=== PATIENT | male | born 1955 | race Caucasian/White ===

== ENCOUNTER 2021-06-15 08:44 | Emergency (ER) | payer MEDICARE, OTHER, SELFPAY ==
[2021-06-15] VITALS (12 sets, daily range): BP systolic 135–185; BP diastolic 89–110; PULSE 70–83; RESP 15–24; TEMP 36.2; O2SAT 97–99; BMI 22.2
--- NOTE | 2021-06-15 09:07 | ED_ITS ---
HPI - Head Injury General Chief complaint: Syncope Stated complaint: Fell- head hit glass door/lac Time Seen by Provider: 06/15/21 09:07 Source: patient Mode of arrival: Ambulatory Limitations: no limitations History of Present Illness HPI Narrative: This is a 66-year-old male who states he had a fall last night and hit his head on the edge of a glass door and had a laceration. This occurred about 2 or 230 in the morning. They live on [facility] in contacted their local medics who evaluated the patient in EKG and recommended that they transfer for here in the morning as there is no transfer other than air left off the middle of the night. Patient states he was having cramping in his legs throughout the evening which is not atypical. He had taken a muscle relaxer about 8:00 p.m.. He tried some mustard which has been helpful for him in the past and 2 aspirin 81 mg. He thinks that he started having very bad cramping while in the bathroom and that caused him to fall but he is not exactly sure what happened and states that he does not recall actually hitting his head and the next thing he remembers other than having his legs cramp in the bathroom is his partner coming in to check on him. Patient denies headache. He denies any neck or new back pain. No chest pain or shortness of breath. No nausea or vomiting. He did have a small amount of fecal incontinence when this occurred. No loss of urine control. He has not had any additional episodes. He does have some discomfort in his right buttock and some bruising. He denies any numbness, weakness or tingling. He has been walking and ambulating and talking without issue. He does take lisinopril, atorvastatin and a daily HIV medication. He does not take aspirin daily but did take 2 last night. He does not have any known cardiac history. He does have heart murmur on exam but he states he has never been told he has 1 in the past. No tobacco, occasional alcohol he states he may have had 1 drink last night, no illicit. He states his tetanus is up-to-date. Related Data Home Medications Medication Instructions Recorded Confirmed aspirin 81 mg chewable tablet 81 mg PO QDAY #0 10/30/17 efavirenz 600 mg-emtricitabine 200 1 tab PO HS #0 10/30/17 mg-tenofovir disoprox 300 mg tablet (Atripla) lisinopril 10 mg tablet PO QDAY #0 10/30/17 omeprazole 20 mg tablet,delayed 20 mg PO QDAY #0 10/30/17 release Allergies Allergy/AdvReac Type Severity Reaction Status Date / Time Penicillins [PENICILLINS] Allergy Unknown 2YRS OLD, Unverified 11/27/17 12:50 UNKNOWN RXN Review of Systems Review of Systems ROS Unobtainable: All systems reviewed & are unremarkable except as noted in HPI and below Patient History Social History Smoking Status: Former smoker Exam Narrative Exam Narrative: GEN: Patient appears in mild distress. HEAD: Patient has a 4 cm laceration on his posterior scalp in the center about 2 cm as gapped about a 0.5 cm with subcutaneous tissue exposed. No galea noted. There is no active bleeding., no raccoon/Alcaraz sign. NECK: Nontender, painless range of motion, trachea midline Negative Nexus criteria, there is no midline tenderness, distracting injury, altered mental status, neuro deficit, recent EtOH. EYES: PERRLA, EOMI ENT: External inspection normal, trachea is midline, TM's are normal no hemotypanum, Nares are clear, no septal hematoma, no dental or oral injury, airway is normal and with normal occlusion, No bony tenderness RESP: Chest is nontender and has symmetric movement, no ecchymosis, breath sounds are normal no crackles, wheezes or rales CVS: Heart sounds are normal, positive for systolic ejection murmur heard throughout chest exam, No JVD. No swelling bilateral lower extremities. ABG/GI: Nontender, soft, normal bowel sounds, no distention, no organomegaly, pelvic rock is negative NEURO: Oriented AOx3, neuro is grossly intact, sensation and motor is normal all 4 extremities moving, cranial nerves II through XII are intact, GCS is 15 PSYCH: Normal mood and affect SKIN: Intact except for posterior scalp, warm and dry, no crepitus and without decubitus BACK: No CVA tenderness, no vertebral tenderness, no step-off's, no crepitus EXT: Atraumatic, hips are nontender, no pedal edema, normal color and temperature, normal range of motion of extremities with normal tendon exam, 2+ pulses in all four extremities Initial Vital Signs Initial Vital Signs: Vital Signs Temperature 97.2 F L 06/15/21 09:00 Pulse Rate 83 06/15/21 09:00 Respiratory Rate 16 06/15/21 09:00 Blood Pressure 135/96 H 06/15/21 09:00 Pulse Oximetry 97 06/15/21 09:00 Procedures Laceration Repair Laceration 1: Time of procedure: 12:03 Site: scalp Size (cm): 7.5 Description: stellate and irregular Depth: simple, single layer and involves muscle layer Local Anesthetic: lidocaine 1% Amount of anesthesia used (mL): 8 Pre-repair: wound explored, irrigated extensively and deep structures intact (galea intact) Skin layer closed with: sidra Number of sutures: 16 Scores GCS [place] coma scale eye opening: Spontaneous [place] coma scale verbal response: Orientated [place] coma scale motor response: Obey commands [place] coma scale total score: 15 Course Orders Ordered: Discontinued Medications Diphtheria/Tetanus/Acell Pertussis (Tet,Diph,Pertuss(Acell),Vac/Pf 0.5 Ml Syringe) 0.5 ml IM .ONCE ONE Stop: 06/15/21 10:13 Last Admin: 06/15/21 11:15 Dose: 0.5 ml Documented by: AIDEE Sodium Chloride (Normal Saline 0.9%) 1,000 mls @ 1,000 mls/hr IV BOLUS ONE Stop: 06/15/21 10:20 Last Infusion: 06/15/21 12:35 Dose: 0 mls/hr Documented by: Admin: 06/15/21 09:59 Dose: 1,000 mls/hr Documented by: AIDEE Lidocaine/Sodium Bicarbonate (Lido 1%/Sod Bicarb 8.4% (10ml) 10 Ml Syringe) 10 ml INJ NOW ONE Stop: 06/15/21 09:22 Last Admin: 06/15/21 11:17 Dose: 10 ml Documented by: AIDEE Lidocaine/Sodium Bicarbonate (Lido 1%/Sod Bicarb 8.4% (10ml) 10 Ml Syringe) 10 ml INJ NOW ONE Stop: 06/15/21 10:13 Last Admin: 06/15/21 11:18 Dose: Not Given Documented by: AIDEE Reevaluation(s) Reevaluation #1: Reviewed patient's labs and imaging and findings with him today. He states he has had an echo in the past so I suspect this systolic ejection murmur may not be new we discussed he may have had a syncopal episode versus fall and hit his head and had a loss of consciousness with concussion. Patient and I discussed observation but he defers and prefers to follow-up. He has a follow-up appointment on July 19 and he was asked to contact his primary care to set up for echo. Patient did require 16 sidra he had quite a large laceration with some slight oozing at the base. Time: 12:04 Vital Signs Vital signs: Vital Signs - 8 hr 06/15/21 11:36 06/15/21 11:37 06/15/21 12:00 Pulse Rate 73 73 Respiratory Rate 16 20 Blood Pressure 145/89 H 145/89 H 185/110 H Pulse Oximetry 99 99 06/15/21 12:36 Pulse Rate 72 Respiratory Rate Blood Pressure 151/90 H Pulse Oximetry 99 MDM - Head Injury Lab Data Result diagrams: 06/15/21 09:14 06/15/21 09:14 Labs: Lab Results 06/15/21 06/15/21 06/15/21 Range/Units 09:10 09:10 09:14 WBC 7.1 (4.5-11.0) X10^3/uL RBC 4.99 (4.5-5.9) X10^6/uL Hgb 16.8 (13.5-17.5) g/dL Hct 48.7 (41-53) % MCV 97.6 (80-100) fL MCH 33.6 (26-34) PG MCHC 34.5 (30-36) % RDW 13.8 (11.6-14.8) % Plt Count 255 (150-400) X10^3/uL Neut % (Auto) 61.5 (50-75) % Lymph % (Auto) 27.9 (25-40) % [place] % (Auto) 9.4 (3-14) % Eos % (Auto) 0.8 L (2-4) % Baso % (Auto) 0.4 (0-2) % Neut # (Auto) 4400 (9084-3757) /uL Lymph # (Auto) 2000 (3220-2829) /uL [place] # (Auto) 700 (0-900) /uL Eos # (Auto) 100 (0-450) /uL Baso # (Auto) 0 (0-100) /uL D-Dimer 390 H (<230) ng/mL Sodium (137-145) mmol/L Potassium (3.4-5.1) mmol/L Chloride (98-107) mmol/L Carbon Dioxide (22-32) mmol/L BUN (9-20) mg/dL Creatinine (0.66-1.25) mg/dL Estimated GFR (>60) mL/min BUN/Creatinine Ratio (6-22) Glucose (80-110) mg/dL Calcium (8.4-10.2) mg/dL Total Bilirubin (0.2-1.3) mg/dL AST (17-59) IU/L ALT (<50) IU/L Alkaline Phosphatase (38-126) U/L Total Creatine Kinase (55-170) U/L CK-MB (CK-2) (<2.37) ng/mL CK-MB (CK-2) Rel Index (1.5-5.0) % Troponin I (0.01-0.034) ng/mL NT-Pro-B Natriuret Pep 441 H (<125) pg/mL Total Protein (6.3-8.2) g/dL Albumin (3.5-5.0) g/dL Globulin (1.7-4.1) g/dL Albumin/Globulin Ratio (1.0-2.8) Lipase (23-300) U/L 06/15/21 Range/Units 09:14 WBC (4.5-11.0) X10^3/uL RBC (4.5-5.9) X10^6/uL Hgb (13.5-17.5) g/dL Hct (41-53) % MCV (80-100) fL MCH (26-34) PG MCHC (30-36) % RDW (11.6-14.8) % Plt Count (150-400) X10^3/uL Neut % (Auto) (50-75) % Lymph % (Auto) (25-40) % [place] % (Auto) (3-14) % Eos % (Auto) (2-4) % Baso % (Auto) (0-2) % Neut # (Auto) (0630-9091) /uL Lymph # (Auto) (0948-9497) /uL [place] # (Auto) (0-900) /uL Eos # (Auto) (0-450) /uL Baso # (Auto) (0-100) /uL D-Dimer (<230) ng/mL Sodium 136 L (137-145) mmol/L Potassium 4.5 (3.4-5.1) mmol/L Chloride 101 (98-107) mmol/L Carbon Dioxide 25 (22-32) mmol/L BUN 14 (9-20) mg/dL Creatinine 0.87 (0.66-1.25) mg/dL Estimated GFR > 60.0 (>60) mL/min BUN/Creatinine Ratio 16.1 (6-22) Glucose 109 (80-110) mg/dL Calcium 9.2 (8.4-10.2) mg/dL Total Bilirubin 1.3 (0.2-1.3) mg/dL AST 66 H (17-59) IU/L ALT 38 (<50) IU/L Alkaline Phosphatase 87 (38-126) U/L Total Creatine Kinase 758 H (55-170) U/L CK-MB (CK-2) 16.00 H (<2.37) ng/mL CK-MB (CK-2) Rel Index 2.1 (1.5-5.0) % Troponin I 0.014 (0.01-0.034) ng/mL NT-Pro-B Natriuret Pep (<125) pg/mL Total Protein 7.1 (6.3-8.2) g/dL Albumin 4.4 (3.5-5.0) g/dL Globulin 2.7 (1.7-4.1) g/dL Albumin/Globulin Ratio 1.6 (1.0-2.8) Lipase 82 (23-300) U/L Imaging Data CT scan - head: Radiologist's Impression: GarciaBrian 66 M [address] [id number] Scan ReportSigned Patient: Brian Garcia EMR#: [id number]: 5Acct:[id number]/Sex: 66 / MDate of Service: 06/15/21Loc: EDAccession Number: [id number] Procedure: CT head/brain wo con Ordering Provider: Paula Sanabria D.O. PROCEDURE: CT HEAD/BRAIN WO CON INDICATIONS: fall vs syncope TECHNIQUE: Noncontrast 4.5 mm thick angled axial sections acquired from the foramen magnum to the vertex, with coronal and sagittal reformats. For radiation dose reduction, the following was used: automated exposure control, adjustment of mA and/or kV according to patient size. COMPARISON: None. FINDINGS: Image quality: Excellent. CSF spaces: Basal cisterns are patent. No extra-axial fluid collections. The ventricles are symmetric in size and shape. Brain: No intracranial bleeds or masses. There is mild cerebral volume loss for age, with resultant ventricular and sulcal prominence. There are periventricular and deep white matter chronic small vessel ischemic changes. There is intracranial internal carotid artery atherosclerosis. Skull and face: Calvarium and visualized facial bones appear intact, without suspicious lesions. Sinuses: Patchy bilateral ethmoid opacification. Visualized sinuses and mastoids are otherwise clear. IMPRESSION: 1. Carotid calcifications are consistent with ASCVD. 2. Age-related volume loss and mild small vessel ischemic change. 3. No evidence acute stroke, hemorrhage, or mass. 4. Bilateral ethmoid sinus disease. Dictated by: Woody Estes M.D. on 06/15/2021 at 9:53 Approved by: Woody Estes M.D. on 06/15/2021 at 9:54 Chest x-ray: Radiologist's Impression: [address] [id number] ReportSigned Patient: Brian Garcia EMR#: [id number]: 5Acct:[id number]/Sex: 66 / MDate of Service: 06/15/21Loc: EDAccession Number: [id number] Procedure: XR chest 1V Ordering Provider: Paula Sanabria D.O. PROCEDURE: XR CHEST 1V INDICATIONS: chest pain TECHNIQUE: One view of the chest was acquired. COMPARISON: None. FINDINGS: Surgical changes and devices: None. Lungs and pleura: There is no focal infiltrate. Likely tiny calcified granuloma is noted in lateral periphery of right lower lung field. No pleural effusions or pneumothorax. Mediastinum: Mediastinal contours appear normal. Heart size is normal. Bones and chest wall: No suspicious bony lesions. Overlying soft tissues appear unremarkable. IMPRESSION: No acute cardiopulmonary pathology. Possible tiny calcified granuloma in right lower lung field. Dictated by: Wade Terrazas M.D. on 06/15/2021 at 9:44 Approved by: Wade Terrazas M.D. on 06/15/2021 at 9:51 US - DVT: Radiologist's Impression: [address] [id number] ReportSigned Patient: Brian Garcia EMR#: [id number]: 5Acct:[id number]/Sex: 66 / MDate of Service: 06/15/21Loc: EDAccession Number: [id number] Procedure: US periph venous low extrem bi Ordering Provider: Paula Sanabria D.O. PROCEDURE: US PERIPH VENOUS LOW EXTREM BI INDICATIONS: b/l leg cramping, ? syncope vs fall, elevated dimer TECHNIQUE: Real-time imaging, as well as color and pulse Doppler interrogation, were performed of the deep veins of both legs from the inguinal ligament to the popliteal fossa. COMPARISON: [facility], CT, CT ANGIO CHEST PE PROTOCOL, 06/15/2021, 10:11. FINDINGS: Right: The common femoral, femoral and popliteal veins are normally compressible, and free of intraluminal thrombus. Color and pulse Doppler demonstrate normal phasic intravascular flow. There is normal augmentation response to distal compression maneuver. Left: The common femoral, femoral and popliteal veins are normally compressible, and free of intraluminal thrombus. Color and pulse Doppler demonstrate normal phasic intravascular flow. There is normal augmentation response to distal compression maneuver. IMPRESSION: Negative for deep venous thrombosis. Dictated by: Rashi Goetz M.D. on 06/15/2021 at 10:08 Approved by: Rashi Goetz M.D. on 06/15/2021 at 10:08 CT scan - chest: Radiologist's Impression: JoseBrian Rufino 66 M [address] [id number] Scan ReportSigned Patient: Brian Garcia EMR#: [id number]: 5Acct:[id number]/Sex: 66 / MDate of Service: 06/15/21Loc: EDAccession Number: [id number] Procedure: CT angio chest PE protocol Ordering Provider: Paula Sanabria D.O. PROCEDURE: CT ANGIO CHEST PE PROTOCOL INDICATIONS: leg cramping, syncope vs fall. elevated dimer TECHNIQUE: After the administration of intravenous contrast, 2 mm thick sections acquired from the pulmonary apices to the posterior costophrenic angles. 3-dimensional maximum intensity projection (MIP) coronal and sagittal reformats were then acquired through the thorax. For radiation dose reduction, the following was used: automated exposure control, adjustment of mA and/or kV according to patient size. COMPARISON: [facility], CR, XR CHEST 1V, 06/15/2021, 9:16. FINDINGS: Image quality: Excellent. Pulmonary arteries: Pulmonary arteries are normal in size, and demonstrate no intraluminal filling defects to suggest central pulmonary embolism. Lungs and pleura: Prkb-en-vplyntne emphysema. There is a 4 mm calcified granuloma in the right lower lobe and a 2 mm calcified granuloma in the left upper lobe. No pleural effusions or pneumothorax. Central and peripheral airways are patent. Mediastinum: Heart size is normal. Moderate coronary artery calcification. No pericardial effusion. No mediastinal or hilar adenopathy. Thoracic aorta is normal in caliber and enhancement. Esophagus is normal in caliber. There is a small hiatal hernia. Bones and chest wall: No suspicious bony lesions. Ribs and thoracic spine appear intact throughout. Thyroid gland is normal. No axillary or supraclavicular adenopathy. Abdomen: Visualized upper abdominal solid organs appear normal in the early arterial phase of enhancement. IMPRESSION: 1. No evidence for pulmonary embolism. 2. Zoha-gt-pbopxqig emphysema. 3. Remote granulomatous disease in lungs. 4. Moderate coronary artery calcification. 5. Small hiatal hernia. There is mild concentric thickening at the GE junction. Recommend esophagram or EGD for follow-up. Dictated by: Demi Mendenhall M.D. on 06/15/2021 at 10:15 Approved by: Demi Mendenhall M.D. on 06/15/2021 at 10:26 ECG Data Attestation: I personally reviewed and interpreted this ECG as follows: Prior ECG tracings: available for review Interpretation: Sinus rhythm possible LVH, nonspecific. Rate of 70 3p are 166 QRS of 92 and QTC 416. Depression in 3 and AVF but not appreciated 2. Patient has prior EKG from last night from medics (patient brought with him) which appears similar to today's. [facility] Narrative Medical decision making narrative: This is a 66-year-old male who either had a fall Um with the loss of consciousness after striking his head and having a laceration to his scalp or possibly syncopal episode. Patient does not recall falling but notes he was having lot of cramping in his calves which is not uncommon and thinks this may have caused his fall. His labs show an elevated D- dimer, patient had bilateral DVT ultrasounds which were negative and CT angio with a possible syncopal episode versus fall which was also negative but had some incidental findings which were shared with the patient. He otherwise appears to be stable from a cardiac perspective no other pulmonary or arrhythmia issues or other causes noted for his of that yesterday. His laceration was healed. We discussed observing the patient but he much prefers to return home. He was unaware of a systolic ejection murmur but states he has had echoes in the past Um and we discussed that he needs to call his provider to set up follow-up they may already be aware of this he has not had recurrent syncopal episodes or other high risk changes. Patient was encouraged to continue his home medications and return for any new or worsening symptoms. Discharge Plan Departure Patient Disposition: Home Clinical Impression: Systolic ejection murmur, Laceration of scalp Concussion Qualifiers: Encounter type: initial encounter Loss of consciousness presence/duration: with LOC of 30 min or less Qualified Code(s): S06.0X1A - Concussion with loss of consciousness of 30 minutes or less, initial encounter Instructions: DI for Concussion Activity Restrictions/Additional Instructions: Follow-up with your physician for recheck. It was noted you had a systolic ejection murmur today. Because were unclear if you had a true concussion versus possibly a syncopal episode it would be appropriate to have an echo to check th e structure of your heart. Your EKG and lab work today was otherwise reassuring and you also had ult rasounds of your legs and an angio CT of your chest that showed a hiatal hernia and some thickening at the gastroesophageal junction which may benefit from an EGD if you are having any symptoms. There are no pulmonary emboli. You do have some coronary artery calcification and I would also share this with your provider. Continue your home medications as prescribed. Wound Care: Keep wound(s) clean and dry. Wash daily with soap and water only. Do not use over the counter products (alcohol or peroxide)on the wounds unless instructed by a physician. If wound condition worsens (increased/expanding redness, developing fluid blisters, or worsening pain), either contact your doctor for an urgent re- assessment , or return to the Emergency Department. Return to the Emergency Department for any new or worsening symptoms. Return to the ED, urgent care, or vist a primary care doctor for removal or suture or sidra in 7-10 days. Return if fever greater than 100.4 Fahrenheit, increased swelling, increasing pain or worsening symptoms such as increased discharge or spreading redness. Severe headaches, continue confusion, altered mental status, new neck or back pain, persistent vomiting, passing out, new chest pain or shortness of breath, new numbness, tingling or weakness or other new or concerning symptoms. Prescriptions: No Action lisinopril 10 mg tablet PO QDAY Qty: 0 RF: 0 [id number] [Atripla] 1 EACH tablet 1 tab PO HS Qty: 0 RF: 0 omeprazole 20 MG tablet,delayed release (DR/EC) 20 mg PO QDAY Qty: 0 RF: 0 aspirin 81 MG tablet,chewable 81 mg PO QDAY Qty: 0 RF: 0
--- NOTE | 2021-06-15 09:15 | DI.RAD.S_ITS ---
PROCEDURE: XR CHEST 1V INDICATIONS: chest pain TECHNIQUE: One view of the chest was acquired. COMPARISON: None. FINDINGS: Surgical changes and devices: None. Lungs and pleura: There is no focal infiltrate. Likely tiny calcified granuloma is noted in lateral periphery of right lower lung field. No pleural effusions or pneumothorax. Mediastinum: Mediastinal contours appear normal. Heart size is normal. Bones and chest wall: No suspicious bony lesions. Overlying soft tissues appear unremarkable. IMPRESSION: No acute cardiopulmonary pathology. Possible tiny calcified granuloma in right lower lung field. Dictated by: Wade Terrazas M.D. on 06/15/2021 at 9:44 Approved by: Wade Terrazas M.D. on 06/15/2021 at 9:51
--- NOTE | 2021-06-15 09:22 | DI.CT.S_ITS ---
PROCEDURE: CT HEAD/BRAIN WO CON INDICATIONS: fall vs syncope TECHNIQUE: Noncontrast 4.5 mm thick angled axial sections acquired from the foramen magnum to the vertex, with coronal and sagittal reformats. For radiation dose reduction, the following was used: automated exposure control, adjustment of mA and/or kV according to patient size. COMPARISON: None. FINDINGS: Image quality: Excellent. CSF spaces: Basal cisterns are patent. No extra-axial fluid collections. The ventricles are symmetric in size and shape. Brain: No intracranial bleeds or masses. There is mild cerebral volume loss for age, with resultant ventricular and sulcal prominence. There are periventricular and deep white matter chronic small vessel ischemic changes. There is intracranial internal carotid artery atherosclerosis. Skull and face: Calvarium and visualized facial bones appear intact, without suspicious lesions. Sinuses: Patchy bilateral ethmoid opacification. Visualized sinuses and mastoids are otherwise clear. IMPRESSION: 1. Carotid calcifications are consistent with ASCVD. 2. Age-related volume loss and mild small vessel ischemic change. 3. No evidence acute stroke, hemorrhage, or mass. 4. Bilateral ethmoid sinus disease. Dictated by: Woody Estes M.D. on 06/15/2021 at 9:53 Approved by: Woody Estes M.D. on 06/15/2021 at 9:54
[2021-06-15 09:24] LABS: Add Manual Diff / Slide Review NO; Basophils Absolute Auto 0 /uL (0-100); Basophils Percent Auto 0.4 % (0-2); Eosinophils Absolute Auto 100 /uL (0-450); Eosinophils Percent Auto 0.8 % (2-4); Hematocrit 48.7 % (41-53); Hemoglobin 16.8 g/dL (13.5-17.5); Lymphocytes Absolute Auto 2000 /uL (1100-4500); Lymphocytes Percent Auto 27.9 % (25-40); Mean Corpuscular HGB Conc 34.5 % (30-36); Mean Corpuscular Hemoglobin 33.6 PG (26-34); Mean Corpuscular Volume 97.6 fL (80-100); Monocytes Absolute Auto 700 /uL (0-900); Monocytes Percent Auto 9.4 % (3-14); Neutrophils Absolute Auto 4400 /uL (1500-7000); Neutrophils Percent Auto 61.5 % (50-75); Platelet Count 255 X10^3/uL (150-400); Red Blood Cell Count 4.99 X10^6/uL (4.5-5.9); Red Cell Distribution Width 13.8 % (11.6-14.8); White Blood Cell Count 7.1 X10^3/uL (4.5-11.0)
[2021-06-15 09:33] LABS: Alanine Aminotransferase 38 IU/L (<50); Albumin 4.4 g/dL (3.5-5.0); Albumin Globulin Ratio 1.6 (1.0-2.8); Alkaline Phosphatase 87 U/L (38-126); Aspartate Aminotransferase 66 IU/L (17-59); BUN Creatinine Ratio 16.1 (6-22); Bilirubin Total 1.3 mg/dL (0.2-1.3); Blood Urea Nitrogen 14 mg/dL (9-20); Calcium 9.2 mg/dL (8.4-10.2); Carbon Dioxide 25 mmol/L (22-32); Chloride 101 mmol/L (98-107); Creatine Kinase 758 U/L (55-170); Estimated Glomerular Filt Rate > 60.0 mL/min (>60); Globulin 2.7 g/dL (1.7-4.1); Glucose 109 mg/dL (80-110); HEMOLYSIS 22 (0-50); Lipase 82 U/L (23-300); Potassium 4.5 mmol/L (3.4-5.1); Sodium 136 mmol/L (137-145); Total Protein 7.1 g/dL (6.3-8.2)
[2021-06-15 09:43] LABS: Troponin I 0.014 ng/mL (0.01-0.034)
[2021-06-15 09:44] LABS: D Dimer 390 ng/mL (<230)
[2021-06-15 09:48] LABS: CKMB % Relative Index 2.1 % (1.5-5.0)
--- NOTE | 2021-06-15 09:58 | DI.US.S_ITS ---
PROCEDURE: US PERIPH VENOUS LOW EXTREM BI INDICATIONS: b/l leg cramping, ? syncope vs fall, elevated dimer TECHNIQUE: Real-time imaging, as well as color and pulse Doppler interrogation, were performed of the deep veins of both legs from the inguinal ligament to the popliteal fossa. COMPARISON: [facility], CT, CT ANGIO CHEST PE PROTOCOL, 06/15/2021, 10:11. FINDINGS: Right: The common femoral, femoral and popliteal veins are normally compressible, and free of intraluminal thrombus. Color and pulse Doppler demonstrate normal phasic intravascular flow. There is normal augmentation response to distal compression maneuver. Left: The common femoral, femoral and popliteal veins are normally compressible, and free of intraluminal thrombus. Color and pulse Doppler demonstrate normal phasic intravascular flow. There is normal augmentation response to distal compression maneuver. IMPRESSION: Negative for deep venous thrombosis. Dictated by: Rashi Goetz M.D. on 06/15/2021 at 10:08 Approved by: Rashi Goetz M.D. on 06/15/2021 at 10:08
[2021-06-15] MEDS: SODIUM CHLORIDE 0.9% 1,000 ML 1000 ML IV (09:59)
[2021-06-15 10:01] LABS: NT-proBNP (BNP-Adult 18+) 441 pg/mL (<125)
--- NOTE | 2021-06-15 10:06 | DI.CT.S_ITS ---
PROCEDURE: CT ANGIO CHEST PE PROTOCOL INDICATIONS: leg cramping, syncope vs fall. elevated dimer TECHNIQUE: After the administration of intravenous contrast, 2 mm thick sections acquired from the pulmonary apices to the posterior costophrenic angles. 3-dimensional maximum intensity projection (MIP) coronal and sagittal reformats were then acquired through the thorax. For radiation dose reduction, the following was used: automated exposure control, adjustment of mA and/or kV according to patient size. COMPARISON: [facility], CR, XR CHEST 1V, 06/15/2021, 9:16. FINDINGS: Image quality: Excellent. Pulmonary arteries: Pulmonary arteries are normal in size, and demonstrate no intraluminal filling defects to suggest central pulmonary embolism. Lungs and pleura: [id number] emphysema. There is a 4 mm calcified granuloma in the right lower lobe and a 2 mm calcified granuloma in the left upper lobe. No pleural effusions or pneumothorax. Central and peripheral airways are patent. Mediastinum: Heart size is normal. Moderate coronary artery calcification. No pericardial effusion. No mediastinal or hilar adenopathy. Thoracic aorta is normal in caliber and enhancement. Esophagus is normal in caliber. There is a small hiatal hernia. Bones and chest wall: No suspicious bony lesions. Ribs and thoracic spine appear intact throughout. Thyroid gland is normal. No axillary or supraclavicular adenopathy. Abdomen: Visualized upper abdominal solid organs appear normal in the early arterial phase of enhancement. IMPRESSION: 1. No evidence for pulmonary embolism. 2. Gusg-ov-evwbageg emphysema. 3. Remote granulomatous disease in lungs. 4. Moderate coronary artery calcification. 5. Small hiatal hernia. There is mild concentric thickening at the GE junction. Recommend esophagram or EGD for follow-up. Dictated by: Demi Mendenhall M.D. on 06/15/2021 at 10:15 Approved by: Demi Mendenhall M.D. on 06/15/2021 at 10:26
[2021-06-15] MEDS: TET,DIPH,PERTUSS(ACELL),VAC/PF 0.5 ML SYRINGE IM (11:15)
[2021-06-15] MEDS: LIDO 1%/SOD BICARB 8.4% (10ML) 10 ML SYRINGE INJ (11:17)
== END 2021-06-15 12:36 | disposition home or self-care (01) ==
PROVIDERS: Emergency Provider Emergency Medicine
DX: S06.0X1A Concussion with loss of consciousness of 30 minutes or less, initial encounter (principal); R01.1 Cardiac murmur, unspecified; S01.01XA Laceration without foreign body of scalp, initial encounter; R25.2 Cramp and spasm; R07.9 Chest pain, unspecified; W22.8XXA Striking against or struck by other objects, initial encounter; Z23 Encounter for immunization
CPT/HCPCS: 12002; 36415; 70450; 71045; 71275; 80053; 82550; 82553; 83690; 83880; 84484; 85025; 85379; 90471; 93005; 93970; 99284; 90715

== ENCOUNTER → 2022-04-24 11:38 | Outpatient (CLI) | payer MEDICARE, OTHER, SELFPAY | PROVIDERS: PCP Family Medicine; Visit Provider Family Medicine | DX: L02.612 Cutaneous abscess of left foot (principal) | CPT/HCPCS: 87070; 87075; 87077; 87186; 87205 ==